=== PATIENT | female | born 1970 | race Caucasian/White ===

== ENCOUNTER 2018-11-13 06:51 | Emergency (ER) | payer BC, MEDICAID ==
[2018-11-13] MEDS ORDERED: METOCLOPRAMIDE HYDROCHLORIDE 5 MG/ML SOL IV ONE (07:25)
[2018-11-13] MEDS ORDERED: KETOROLAC TROMETHAMINE 30 MG/ML SOL IV ONE (07:26)
[2018-11-13] MEDS ORDERED: SODIUM CHLORIDE 0.9% 1000ML 1,000 ML IV ONE (07:26)
[2018-11-13] MEDS ORDERED: METOCLOPRAMIDE HYDROCHLORIDE 5 MG/ML SOL ONE (07:27)
[2018-11-13] MEDS ORDERED: KETOROLAC TROMETHAMINE 30 MG/ML SOL ONE (07:27)
[2018-11-13 07:39] VITALS: TEMP 98
[2018-11-13] MEDS ORDERED: SUMATRIPTAN SUCCINATE 6 MG/0.5 ML SOL SC ONE ×2 (08:11)
[2018-11-13] MEDS ORDERED: SODIUM CHLORIDE 0.9% FLUSH 10 ML SOL IV PRN (08:42)
[2018-11-13 08:44] VITALS: BP 122/83; PULSE 83; RESP 16; O2SAT 98
== END 2018-11-13 08:52 | disposition home or self-care (01) | DRG 103 ==
LOC: ED 06:51
DX: G43.109 Migraine with aura, not intractable, without status migrainosus (principal); R11.10 Vomiting, unspecified
CPT/HCPCS: 96365; 96372; 96374; 96375; 99283; 99285; J1885; J2765; J3030